=== PATIENT | female | born 1950 | race Caucasian/White ===

== ENCOUNTER 2023-05-29 13:34 | Inpatient (IN) | payer MEDICARE ==
[2023-05-29] MEDS ORDERED: Diazepam 5 MG TAB PO PRN (15:56)
[2023-05-29] MEDS ORDERED: Bisacodyl 5 MG TAB PO PRN (16:08)
[2023-05-29] MEDS: cloNIDine 0.1 MG TAB PO PRN (20:45)
[2023-05-29] MEDS: Docusate 100 MG CAP PO SCH (20:48)
[2023-05-29] MEDS: HYDROcodone/Acetaminophen 5/325 mg Tablet PO PRN (20:48)
[2023-05-29] MEDS: Atorvastatin Calcium 40 MG TAB PO SCH (20:49)
[2023-05-29] MEDS: Dexamethasone 1 MG TAB PO SCH (20:50)
[2023-05-29] MEDS: Senokot S 8.6-50 MG TAB PO PRN (20:50)
[2023-05-29] MEDS: Sertraline 100 MG TAB PO SCH (20:50)
[2023-05-29] MEDS: Gabapentin 300 MG CAP PO SCH (20:51)
[2023-05-30 06:35] LABS: #Lymphocytes 1.5 thou/uL (1.20-3.40); #Monocytes 0.4 thou/uL (0.11-0.59); #Neutrophils 5.6 thou/uL (1.40-6.50); %Basophils 0.4 % (0.0-1.0); %Lymphocytes 20.1 % (21.0-51.0); %Monocytes 5.5 % (0.0-10.0); Hematocrit 30.6 % (36.0-47.0); Hemoglobin 10.3 g/dL (12.0-16.0); Mean Corpuscular HGB CONC 33.5 g/dL (32.0-36.0); Mean Corpuscular Hemoglobin 30.5 pg (27.0-31.0); Mean Corpuscular Volume 91.1 fl (78.0-98.0); Mean Platelet Volume 6.6 fL (7.4-10.4); Platelet Count 272 10x3/uL (130-400); RBC Distribution Width 12.5 % (11.5-14.5); Red Blood Cell (RBC) Count 3.36 mill/uL (4.20-5.40); White Blood Cell (WBC) Count 7.6 10x3/uL (4.8-10.8)
[2023-05-30 06:51] LABS: ALT (SGPT) 20 U/L (8-55); AST (SGOT) 20 U/L (5-34); Albumin 3.5 g/dL (3.4-4.8); Alkaline Phosphatase 68 U/L (40-110); Anion Gap 13 mmol/L (10-20); BUN (Urea Nitrogen) 11 mg/dL (9.8-20.1); Bilirubin, Total 0.4 mg/dL (0.2-1.2); Calc. Creatinine Clearance 93 mL/min (70-130); Calcium 8.9 mg/dL (7.8-10.44); Carbon Dioxide 26 mmol/L (23-31); Chloride 100 mmol/L (98-107); Estimated GFR 86; Globulin 3.4 g/dL (2.4-3.5); Glucose 128 mg/dL (83-110); Potassium 3.8 mmol/L (3.5-5.1); Protein, Total 6.9 g/dL (5.8-8.1); Sodium 135 mmol/L (136-145)
[2023-05-30] MEDS: Hydrochlorothiazide 25 MG TAB PO SCH (08:51)
[2023-05-30] MEDS: Bisoprolol Fumarate 5 MG TAB PO SCH (08:56)
[2023-05-30] MEDS ORDERED: Bisacodyl 10 MG SUPP PR PRN (10:45)
[2023-05-31 03:51] VITALS: BMI 35.5
[2023-05-31] MEDS: HYDROcodone/Acetaminophen 5/325 mg Tablet PO PRN (09:29)
[2023-05-31] MEDS: Bisoprolol Fumarate 5 MG TAB PO SCH (10:33)
[2023-05-31] MEDS: Dexamethasone 1 MG TAB ONE (14:40)
[2023-05-31] MEDS: Dexamethasone 1 MG TAB PO SCH (22:03)
[2023-06-01] MEDS: Dexamethasone 1 MG TAB PO SCH (02:58)
[2023-06-01] MEDS: Bisoprolol Fumarate 5 MG TAB PO SCH (08:24)
[2023-06-02] MEDS ORDERED: Dexamethasone 1 MG TAB PO SCH (21:00)
[2023-06-03] MEDS: Dexamethasone 1 MG TAB PO SCH (02:48)
[2023-06-03] MEDS: Amlodipine 5 MG TAB PO SCH (08:54)
[2023-06-04 07:32] VITALS: BP 154/75; TEMP 97.6
== END 2023-06-04 14:00 | disposition home or self-care (01) | DRG 948 ==
LOC: NAV ACUTE 18:44
PROVIDERS: ADMIT Family Medicine; ATTEND Family Medicine
DX: R53.81 Other malaise (principal); M06.9 Rheumatoid arthritis, unspecified; I10 Essential (primary) hypertension; E78.5 Hyperlipidemia, unspecified; K21.9 Gastro-esophageal reflux disease without esophagitis; K59.00 Constipation, unspecified; Z90.49 Acquired absence of other specified parts of digestive tract; Z90.710 Acquired absence of both cervix and uterus; Z98.890 Other specified postprocedural states; Z88.1 Allergy status to other antibiotic agents; Z91.040 Latex allergy status; Z88.5 Allergy status to narcotic agent; Z88.2 Allergy status to sulfonamides; Z91.09 Other allergy status, other than to drugs and biological substances
CPT/HCPCS: 36415; 80053; 85025; J8540